=== PATIENT | male | born 1990 | race Two or more races ===

== ENCOUNTER 2021-10-06 23:31 | Emergency (ER) | payer SELFPAY ==
[2021-10-07] MEDS ORDERED: ClonazePAM 1 MG Tab PO STA (03:12)
== END 2021-10-07 03:37 ==
LOC: EDBD 23:31 → MW.ED 23:31
DX: F41.9 Anxiety disorder, unspecified (principal); I10 Essential (primary) hypertension; Z79.899 Other long term (current) drug therapy
CPT/HCPCS: 99282; A9270

== ENCOUNTER 2023-07-23 23:51 | Emergency (ER) | payer SELFPAY | END 2023-07-24 00:28 | LOC: MW.ED 23:51 | DX: M25.561 Pain in right knee (principal); M25.512 Pain in left shoulder; I10 Essential (primary) hypertension; W03.XXXA Other fall on same level due to collision with another person, initial encounter; Z79.899 Other long term (current) drug therapy; Z75.8 Other problems related to medical facilities and other health care | CPT/HCPCS: 73020-26-LT; 73020-LT; 73560-26-RT; 73560-RT; 99281; 99283 ==

== ENCOUNTER 2023-07-24 01:54 | Emergency (ER) | payer SELFPAY | END 2023-07-24 02:09 | LOC: MW.ED 01:54 | DX: I10 Essential (primary) hypertension; Z79.899 Other long term (current) drug therapy; Z75.8 Other problems related to medical facilities and other health care | CPT/HCPCS: 99281; 99283 ==